=== PATIENT | female | born 1980 | race African-American/Black ===

== ENCOUNTER 2020-12-22 16:10 | Emergency (ER) | payer SELFPAY ==
[~2020-12-22] VITALS: Ht 165.1 cm; Wt 94.0 kg
[2020-12-22 16:21] VITALS: BP 170/80
[2020-12-22] MEDS ORDERED: FAMOTIDINE 20MG TABLET PO ONE (16:45)
[2020-12-22] MEDS ORDERED: PREDNISONE 20MG TABLET PO ONE (16:45)
[2020-12-22] MEDS ORDERED: FAMO-135 MT (17:25)
[2020-12-22] MEDS ORDERED: P20 MT (17:25)
== END 2020-12-22 18:00 | disposition home or self-care (01) ==
LOC: ER 16:10
DX: L50.6 Contact urticaria (principal); I10 Essential (primary) hypertension; J45.909 Unspecified asthma, uncomplicated; Z88.0 Allergy status to penicillin; Z88.8 Allergy status to other drugs, medicaments and biological substances
CPT/HCPCS: 99283; J7512